=== PATIENT | male | born 1935 | race African-American/Black ===

== ENCOUNTER 2024-05-13 08:48 | Emergency (ER) | payer OTHER ==
[~2024-05-13] VITALS: Ht 172.7 cm; Wt 70.0 kg
[2024-05-13 08:49] VITALS: O2SAT 99
[2024-05-13 11:13] LABS: CHLORIDE 111 mEq/L (98-107); POTASSIUM 3.5 mEq/L (3.5-5.1); SODIUM 142 mEq/L (136-145)
[2024-05-13 11:14] LABS: CARBON DIOXIDE 22 mEq/L (21-32)
[2024-05-13 11:15] LABS: CALCIUM 9.2 mg/dL (8.7-10.4); HEMATOCRIT. 38.6 % (42.0-52.0); HEMOGLOBIN. 12.8 g/dL (14.0-18.0); MEAN CORPUSCULAR HGB CONC 33.1 g/dL (31.0-37.0); MEAN CORPUSCULAR VOLUME 87.7 fL (80.0-94.0); MEAN PLATELET VOLUME 8.9 fl (7.4-10.4); PLATELET 167 x1000/uL (130-400); RED CELL DISTRIBUTION WIDTH 15.6 % (11.6-14.6)
[2024-05-13 11:19] LABS: CREATININE 1.8 mg/dL (0.6-1.3); GLUCOSE 120 mg/dL (70-105); UREA NITROGEN BLOOD 15 mg/dL (9-23)
[2024-05-13 11:22] LABS: DIFFERENTIAL COMMENT 1
[2024-05-13 11:31] LABS: ETHANOL BLOOD < 10 mg/dL (<10); TROPONIN I HIGH SENSITIVITY 74 ng/L (3.0-53)
[2024-05-13 14:18] LABS: TROPONIN I HIGH SENSITIVITY 113 ng/L (3.0-53)
[2024-05-13 14:20] VITALS: BP 130/57; PULSE 82; RESP 16; O2SAT 99
[2024-05-13 16:12] LABS: PLATELET ESTIMATE NORMAL
== END 2024-05-13 15:03 | disposition short-term general hospital (02) ==
LOC: ER 08:48 → CANBEDREQ 13:03 → ER 15:03
DX: R41.82 Altered mental status, unspecified (principal); E78.00 Pure hypercholesterolemia, unspecified; I10 Essential (primary) hypertension
CPT/HCPCS: 80048; 80320; 85025; 84484; 36415; 71045; 70450; 99285; Z7610 ×2; G0480

== ENCOUNTER 2024-07-21 01:21 | Emergency (ER) | payer OTHER ==
[~2024-07-21] VITALS: Ht 180.3 cm; Wt 78.0 kg
[2024-07-21 02:20] LABS: CARBON DIOXIDE 19 mEq/L (21-32); CHLORIDE 110 mEq/L (98-107); POTASSIUM 3.6 mEq/L (3.5-5.1); SODIUM 143 mEq/L (136-145)
[2024-07-21 02:21] LABS: CALCIUM 8.8 mg/dL (8.7-10.4)
[2024-07-21 02:25] LABS: CREATININE 1.9 mg/dL (0.6-1.3)
[2024-07-21 02:26] LABS: BASOPHILS % 1.2 % (0.0-2.0); EOSINOPHILS % 4.4 % (0.0-5.0); ETHANOL BLOOD < 10 mg/dL (<10); GLUCOSE 87 mg/dL (70-105); HEMATOCRIT. 35.3 % (42.0-52.0); HEMOGLOBIN. 11.3 g/dL (14.0-18.0); LYMPHOCYTES % 47.1 % (20.0-50.0); MEAN CORPUSCULAR HEMOGLOBIN 27.9 pg (28.0-32.0); MEAN CORPUSCULAR VOLUME 87.1 fL (80.0-94.0); MEAN PLATELET VOLUME 8.9 fl (7.4-10.4); NEUTROPHILS % 38.3 % (40.0-76.0); PLATELET 173 x1000/uL (130-400); RED BLOOD CELL COUNT 4.05 mill/uL (4.7-6.1); RED CELL DISTRIBUTION WIDTH 16.3 % (11.6-14.6); TROPONIN I HIGH SENSITIVITY 19 ng/L (3.0-53); UREA NITROGEN BLOOD 21 mg/dL (9-23); WHITE BLOOD COUNT 6.7 x1000/uL (4.5-11.0)
[2024-07-21 02:33] LABS: PARTIAL THROMBOPLASTIN TIME 25.1 sec (23.4-31.0); PROTHROMBIN TIME 10.7 sec (9.6-11.0)
[2024-07-21] MEDS: SODIUM CHLORIDE 0.9% 500 ML IV ONE (03:00)
[2024-07-21] MEDS: LEVETIRACETAM 500MG PREMIX 100 ML IV ONE ×2 (03:14)
[2024-07-21] MEDS: LORAZEPAM 2MG/ML INJ IV ONE (03:14)
[2024-07-21 03:15] VITALS: O2SAT 98
[2024-07-21] MEDS: MIDAZOLAM HCL 2 MG/2 ML VIAL IV ONE (03:15)
[2024-07-21] MEDS: ONDANSETRON HCL 4MG/2ML INJ IV ONE (04:30)
[2024-07-21 05:52] LABS: CLARITY URINE CLEAR (CLEAR); COLOR URINE YELLOW (YELLOW); GLUCOSE URINE NEGATIVE (NEGATIVE); KETONES URINE NEGATIVE (NEGATIVE); LEUKOCYTE ESTERASE URINE NEGATIVE (NEGATIVE); NITRITE URINE NEGATIVE (NEGATIVE); OCCULT BLOOD URINE TRACE (NEGATIVE); PROTEIN URINE 1+ (NEGATIVE); SPECIFIC GRAVITY URINE 1.019 (1.005-1.030); UROBILINOGEN URINE 0.2 E.U./dL (0.2-1.0)
[2024-07-21 05:59] LABS: *AMPHETAMINES SCREEN URINE NEGATIVE (NEGATIVE); *BARBITURATES SCREEN URINE NEGATIVE (NEGATIVE); *BENZODIAZEPINES SCREEN URINE PRESUMPTIVE POSITIVE (NEGATIVE); *COCAINE SCREEN URINE NEGATIVE (NEGATIVE); CANNABINOID URINE SCREEN PRESUMPTIVE POSITIVE (NEGATIVE); ECSTASY MDMA SCREEN URINE NEGATIVE (NEGATIVE); METHADONE URINE SCREEN NEGATIVE (NEGATIVE); OPIATES URINE SCREEN NEGATIVE (NEGATIVE); PHENCYCLIDINE URINE SCREEN NEGATIVE (NEGATIVE)
[2024-07-21 06:26] VITALS: BP 151/63; PULSE 104; RESP 26; TEMP 36.6; O2SAT 94
[2024-07-21 07:04] LABS: SQUAMOUS EPITHELIAL CELL URINE 1+ /lpf (RARE/1+)
[2024-07-21 07:05] LABS: BACTERIA URINE TRACE; WBC URINE 0-2 /hpf (0-2)
[2024-07-21] MEDS ORDERED: ROCURONIUM BROMIDE 10MG/ML VIAL 5ML IV ONE (12:06)
[2024-07-21] MEDS ORDERED: FENTANYL CITRATE/PF 50MCG/ML 2ML VIAL ONE (12:06)
[2024-07-21] MEDS ORDERED: CALCIUM CHLORIDE 1GM/10ML SYR IV ONE (12:11)
== END 2024-07-21 06:36 | disposition short-term general hospital (02) ==
LOC: ER 01:21 → EDBEDREQ 05:15 → EDBEDREQTM 05:15 → ER 06:36
DX: R56.9 Unspecified convulsions (principal); R55 Syncope and collapse; I10 Essential (primary) hypertension; E78.00 Pure hypercholesterolemia, unspecified
CPT/HCPCS: 80305; 80048; 81003; 80320; 83880; 85025; 85610; 85730; 84484; 36415; 71045; 70450; 93005; 96365; 96375; 99285; J3010; J1953; J3490 ×2; J2060; J2250; J2405; G0480